=== PATIENT | male | born 1990 ===

== ENCOUNTER 2017-04-23 01:02 | Observation (INO) | payer BC ==
[2017-04-23 01:09] VITALS: BP 139/87; PULSE 117; RESP 18; TEMP 98.4; O2SAT 96
[2017-04-23] MEDS ORDERED: Lidocaine 1% Inj (20ml) ONE (01:18)
[2017-04-23] MEDS ORDERED: TDAP Vaccine 0.5 mL Syr IM ONE (02:05)
[2017-04-23] MEDS ORDERED: Lidocaine 1% Inj (20ml) IJ STA (02:21)
[2017-04-23] MEDS: Ampicillin/Sulbactam 1.5 GM in Sodium Chloride 0.9% 100 ML IVPB SCH ×2 (03:15→10:11)
--- NOTE | 2017-04-23 04:37 | ED PDOC ---
HPI: Wound Care - HPI Time Seen by Provider: 04/23/17 02:02 Chief Complaint (Nursing): ENT Problem Chief Complaint (Provider): wound History Per: Patient Additional Complaint(s): 27yo M in ED for eval of facial injury sustained after a trip and fall in his apartment bathroom onto the toilet bowl edge. denies LOC, OLEARY, vision changes, nausea and vomiting . pt without pain to jaw or missing teeth. no SOB or CP. denies tongue swelling. pt tetanus is not uptodate. pt with laceration to lip upper and lower and right side of jaw extending to neck. and cut on nose bridge. Past Medical History Reviewed: Historical Data, Nursing Documentation, Vital Signs Vital Signs: Last Vital Signs Temp 98.4 F 04/23/17 01:03 Pulse 117 H 04/23/17 01:03 Resp 18 04/23/17 01:03 BP 139/87 04/23/17 01:03 Pulse Ox 96 04/23/17 01:03 - Medical History PMH: No Chronic Diseases - Family History Family History: States: No Known Family Hx - Allergies Allergies/Adverse Reactions: Allergies Allergy/AdvReac Type Severity Reaction Status Date / Time No Known Allergies Allergy Verified 04/23/17 01:06 Review of Systems ROS Statement: Except As Marked, All Systems Reviewed And Found Negative Constitutional: Negative for: Fever, Weakness, Malaise Eyes: Negative for: Vision Change ENT: Positive for: Nose Pain Physical Exam - Reviewed Nursing Documentation Reviewed: Yes Vital Signs Reviewed: Yes - Physical Exam Appears: Positive for: Non-toxic, No Acute Distress, Uncomfortable Head Exam: Positive for: ATRAUMATIC, NORMAL INSPECTION, NORMOCEPHALIC Skin: Positive for: Normal Color, Warm, DRY Eye Exam: Positive for: Normal appearance, EOMI, PERRL. Negative for: Periorbital swelling, Periorbital tenderness, Scleral icterus ENT: Positive for: Other (laceration: #1 noted on bridge of nose 1.5cm irregular mild active bleeding. no nasal bone deformity no swelling no bleeding from nares. #2 laceration: note partial thickness extending into the vermilion border of upper lip with active bleeding. #3 laceration: through and through laceration extending into the andrew border of lower lip with active bleeding. #4 laceration: 9cm irregular full thcikness with belly of muscle exposed from jaw line extending to neck on right side with active bleeding. no jaw pain no missing or broken teeth. no tongue swelling. no maxiallary sinus pain no orbital bony pain) Neck: Positive for: Painless ROM Cardiovascular/Chest: Positive for: Tachycardia Respiratory: Positive for: CNT, Normal Breath Sounds Neurologic/Psych: Positive for: Alert, residential service technician II-XII (intact), Oriented - ECG O2 Sat by Pulse Oximetry: 96 - Progress ED Course And Treament: case discused with MD Chiara PT will get CT of head and face-results: NAD pt will get IV abx (unaysn) Joselito Ford plastic surgeon consulted and will come to see pt at 730am for repair. PT made aware of length of ER stay and is accepting. wound area cleaned and wet dressing applied. pt given tetatnus booster in ED. Re-evaluation Time: 04:45 Condition: Unchanged - Physician Consult Information Time Consulting Physican Contacted: 04:45 Physician Contacted: joselito ford ED OBSERVATION Date of observation admission: 04/23/17 Time of observation admission: 04:46 - Observation admission statement Patient is being placed in observation because:: pt pending plastics consult for laceration repair - Goals of Observation Goals of observation are:: plastics repair - Progress Note Progress Note: 04/23/17 05:31 pt offered pain control in ED but declined. pt doing well and tolerating PO 04/23/17 05:33 case signed out to MD Chiara pending plastics consults. Disposition - Clinical Impression Clinical Impression: Laceration - Patient ED Disposition Is Patient to be Admitted: No - Disposition Disposition: Routine/Home Disposition Time: 05:32 Condition: STABLE Patient Signed Over To: Jonel Guadarrama Handoff Comments: plastics consult
--- NOTE | 2017-04-23 06:20 | ED PDOC ---
- ECG O2 Sat by Pulse Oximetry: 96 Medical Decision Making Medical Decision Making: Patient s/o from Austen Cortes PA-C at [address] Annamarie black. Patient s/o to Dr. Lira at [address] Annamarie black. Scribe Attestation: Documented by Linda Sam acting as a scribe for Jonel Guadarrama MD. Provider Scribe Attestation: All medical record entries made by the Scribe were at my direction and personally dictated by me. I have reviewed the chart and agree that the record accurately reflects my personal performance of the history, physical exam, medical decision making, and the department course for this patient. I have also personally directed, reviewed, and agree with the discharge instructions and disposition. Disposition - Clinical Impression Clinical Impression: Laceration - POA Present On Arrival: None - Disposition Disposition: Transfer of Care Disposition Time: 02:20 Condition: STABLE Patient Signed Over To: Elizabeth Lira Handoff Comments: pending Dr. Annamarie black
--- NOTE | 2017-04-23 07:14 | ED PDOC ---
- ECG O2 Sat by Pulse Oximetry: 96 (RA) Pulse Ox Interpretation: Normal Medical Decision Making Medical Decision Making: Receiving Sign Out: Pt signed out to me by Dr. Guadarrama pending Dr. De Luna plastics repair and final disposition. Dr De Luna performed laceration repair. recommends keflex, mouthwashing 3 times a day and follow up tomorrow in office for wound check. relayed to pt. Scribe Attestation: Documented by Karli Garces acting as a scribe for Elizabeth Lira MD. Provider Attestation: All medical record entries made by the Scribe were at my direction and personally dictated by me. I have reviewed the chart and agree that the record accurately reflects my personal performance of the history, physical exam, medical decision making, and the department course for this patient. I have also personally directed, reviewed, and agree with the discharge instructions and disposition. Disposition Counseled Patient/Family Regarding: Studies Performed, Need For Followup - Clinical Impression Clinical Impression: Laceration - POA Present On Arrival: None - Disposition Disposition: Routine/Home Disposition Time: 09:34 Condition: IMPROVED Progress Note - Review of Symptoms Events since last encounter: 932 Pt seen and evaluated by Dr. De Luna. Pt to be d/c home with Rx Kefflex and instructions to use mouthwash 3x a day. Pt to follow up with Dr. De Luna in his office tomorrow.
[2017-04-23] MEDS ORDERED: Lidocaine 2% w Epi 1:100,000 Inj IJ ONE ×2 (07:17→07:21)
[2017-04-23] MEDS ORDERED: Povidone Iodine Topical 10% Sol ONE (07:36)
--- NOTE | 2017-04-23 08:43 | CT ---
PROCEDURE: CT HEAD WITHOUT CONTRAST. HISTORY: Head injury COMPARISON: None available. TECHNIQUE: Axial computed tomography images were obtained through the head/brain without intravenous contrast. Radiation dose: Total exam DLP = 891.4 mGy-cm. This CT exam was performed using one or more of the following dose reduction techniques: Automated exposure control, adjustment of the mA and/or kV according to patient size, and/or use of iterative reconstruction technique. FINDINGS: HEMORRHAGE: No intracranial hemorrhage. BRAIN: [place]-white matter differentiation is preserved. There is no mass, mass effect or abnormal extra-axial fluid collection. VENTRICLES: The ventricles are normal in size, shape and configuration. CALVARIUM: There is no calvarial fracture or extracranial soft tissue swelling. PARANASAL SINUSES: Predominantly clear. MASTOID AIR CELLS: Predominantly clear. OTHER FINDINGS: None. IMPRESSION: No acute intracranial abnormality. A preliminary report was provided by [facility] services.
--- NOTE | 2017-04-23 09:10 | CT ---
PROCEDURE: CT MAXILLOFACIAL BONES WITHOUT CONTRAST HISTORY: Facial injury COMPARISON: None TECHNIQUE: Contiguous axial CT images of the maxillofacial bones were obtained. Coronal and sagittal reformats were generated. Radiation dose: Total exam DLP = 784.88 mGy-cm. This CT exam was performed using one or more of the following dose reduction techniques: Automated exposure control, adjustment of the mA and/or kV according to patient size, and/or use of iterative reconstruction technique. FINDINGS: NASAL BONES: The nasal bones are intact. ORBITS: No acute fracture. PARANASAL SINUSES/ MASTOIDS: There is mild polypoid mucosal thickening in the maxillary sinuses. The remaining included paranasal sinuses are predominantly clear. MAXILLA: No acute maxillofacial fracture. MANDIBLE/ TEMPOROMANDIBULAR JOINTS: And small No acute displaced fracture. The temporomandibular joints are normally located. SKULL BASE: Unremarkable. TEMPORAL BONES: Middle ears and mastoid grossly unremarkable. OTHER FINDINGS: There is a large soft tissue defect overlying the right mandible with soft tissue emphysema and subcutaneous edema. IMPRESSION: No acute displaced fracture or dislocation. Laceration, soft tissue emphysema and soft tissue swelling overlying the right mandible. A preliminary report was provided by [facility] services.
== END 2017-04-23 10:16 | disposition home or self-care (01) ==
LOC: H.ER 01:02 → H.EROBSV 02:20
PROVIDERS: ADMIT Emergency Medicine; ATTEND Emergency Medicine
DX: S01.511A Laceration without foreign body of lip, initial encounter (principal); W01.0XXA Fall on same level from slipping, tripping and stumbling without subsequent striking against object, initial encounter; Y92.89 Other specified places as the place of occurrence of the external cause
CPT/HCPCS: 12011; 70450; 70486; 90471; 90715; 96372; 99282; G0378; J0295; J2405